=== PATIENT | female | born 1980 | race Caucasian/White ===

== ENCOUNTER 2020-03-09 10:50 | Outpatient (REF) | payer OTHER, SELFPAY | END 2020-03-09 10:51 | disposition home or self-care (01) | LOC: HO.LAB 10:50 | PROVIDERS: Visit Provider Internal Medicine | DX: Z20.828 Contact with and (suspected) exposure to other viral communicable diseases (principal) | CPT/HCPCS: 36415; 87635 ==

== ENCOUNTER 2020-07-03 14:01 | Emergency (ER) | payer OTHER, SELFPAY ==
--- NOTE | 2020-07-03 14:09 | XR_ITS ---
EXAMINATION: XR ANKLE, LEFT CLINICAL INFORMATION: Pain. COMPARISON: None TECHNIQUE: AP, lateral, and mortise views of the left ankle. FINDINGS: There is mild lateral malleolar soft tissue swelling. No visible acute fracture, dislocation or subluxation seen. There is moderate size calcaneal heel and a small retrocalcaneal enthesophyte. The soft tissues are normal. XR/XR ankle LT min 3V IMPRESSION: Mild lateral malleolar soft tissue swelling. No visible acute fracture or dislocation seen.
[2020-07-03 15:21] VITALS: BP 136/82; PULSE 73; RESP 18; TEMP 37; O2SAT 99; BMI 33.5
--- NOTE | 2020-07-03 16:36 | ED.LOWEXIN ---
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 She is able to ambulate on it but gingerly. She has pain both on the medial and lateral sides. Denies any pain in her knee or hip. Pt states she did not try ice or analgesics prior to arrival. Related Data Allergies Allergy/AdvReac Type Severity Reaction Status Date / Time adalimumab [From [facility]] Allergy Unknown ANGIOEDEMA Verified 07/03/20 15:20 Review of Systems Review of Systems: Yes all other systems are reviewed and are negative [facility]LY [facility] Social History Social History Advance Directives: No Advance Directives Information Provided: Yes Physical Exam Vital Signs: Vital Signs: Last Vital Signs Temp 98.6 F 07/03/20 15:21 Pulse 73 07/03/20 15:21 Resp 18 07/03/20 15:21 BP 136/82 07/03/20 15:21 Pulse Ox 99 07/03/20 15:21 Body Mass Index 33.5 Const: General: cooperative, healthy appearing, comfortable and no acute distress Orientation/consciousness: patient oriented x3 Eyes: General: appearance normal, both eyes and all related structures Resp: Effort & Inspection: normal respiratory effort and able to speak in complete sentences Neuro: General: patient oriented x3 Extrem: Other: Last ankle swollen on the lateral malleolus as well as the medial malleolus, both areas are exquisitely tender to palpation. Patient has full range of motion in her ankle and all 5 toes, good pulses and NVI, no lacerations or scrapes or signs of infection noted. 5/5 strength and full sensation intact on entire foot. 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 X-rays negative for dislocation or fractures, will wrap ankle and discharged home. Patient given instructions on RICE method. As patient is very active in her job, will write note for her to have the next 5 days off to rested with a follow-up to ortho if necessary. MDM - Extremity Injury (Lower) Imaging Data LE xray: Attestation: I personally reviewed and interpreted this imaging study as follows: My impression: IMPRESSION: Mild lateral malleolar soft tissue swelling. No visible acute fracture or dislocation seen. Radiologist's impression: [address] [address]FEtl ReportSigned Patient: Ирина Wall MMR#: [id number]: [id number]:[id number]/Sex: 39 / FADM Date: 07/03/20Loc: HO.EDAttending Dr: Ordering Physician: Margret Jay DO Date of Service: 07/03/20 Procedure(s): XR ankle LT min 3V Accession Number(s): [id number] cc: Margret Jay DO~ EXAMINATION: XR ANKLE, LEFT CLINICAL INFORMATION: Pain. COMPARISON: None TECHNIQUE: AP, lateral, and mortise views of the left ankle. FINDINGS: There is mild lateral malleolar soft tissue swelling. No visible acute fracture, dislocation or subluxation seen. There is moderate size calcaneal heel and a small retrocalcaneal enthesophyte. The soft tissues are normal. XR/XR ankle LT min 3V IMPRESSION: Mild lateral malleolar soft tissue swelling. No visible acute fracture or dislocation seen. Dictated By:PHILLIP FLETCHER MDSigned By:<Electronically signed by PHILLIP FLETCHER MD in OV>07/03/20 1432 DD/ 1409TD/TT: Cleaning [place] [facility] [place] Discharge Clinical Impression: Ankle sprain and strain Patient Disposition: Home, Self-Care Instructions: Ankle Sprain (ED) Referrals: Russ Singh MD [Physician] - 2 days Stand Alone Forms: Work/School Release Interventions: ED Discharge Assessment Last Done: 07/03/20 17:12 Discharge Date/Time: 07/03/20 17:13
== END 2020-07-03 17:13 | disposition home or self-care (01) ==
PROVIDERS: Emergency Provider Internal Medicine
DX: S93.402A Sprain of unspecified ligament of left ankle, initial encounter (principal); M25.572 Pain in left ankle and joints of left foot; Y33.XXXA Other specified events, undetermined intent, initial encounter; Y93.9 Activity, unspecified; Y92.538 Other ambulatory health services establishments as the place of occurrence of the external cause; Y99.0 Civilian activity done for income or pay; Z79.899 Other long term (current) drug therapy
CPT/HCPCS: 73610; 99283

== ENCOUNTER → 2020-07-07 09:22 | Outpatient (BNVA) | payer OTHER, SELFPAY | PROVIDERS: Visit Provider Physician Assistant | DX: Z13.89 Encounter for screening for other disorder (principal) | CPT/HCPCS: 99202 ==

== ENCOUNTER → 2020-07-13 08:05 | Outpatient (BNVA) | payer OTHER, SELFPAY | PROVIDERS: Visit Provider Physician Assistant | DX: Z13.89 Encounter for screening for other disorder (principal) | CPT/HCPCS: 99212 ==

== ENCOUNTER → 2020-11-11 14:32 | Outpatient (BNVA) | payer OTHER, SELFPAY | PROVIDERS: Visit Provider Physician Assistant | DX: S00.93XA Contusion of unspecified part of head, initial encounter (principal); V86.11XA Passenger of ambulance or fire engine injured in traffic accident, initial encounter; M54.2 Cervicalgia | CPT/HCPCS: 99203 ==